=== PATIENT | male | born 1955 | race Caucasian/White ===

== ENCOUNTER 2017-05-11 17:19 | Outpatient (CLI) | payer SELFPAY | END 2017-05-11 17:20 | disposition critical access hospital (66) | LOC: EMS 17:19 | PROVIDERS: ATTEND Surgery | DX: M79.631 Pain in right forearm (principal); W20.8XXA Other cause of strike by thrown, projected or falling object, initial encounter | CPT/HCPCS: A0425; A0429 ==

== ENCOUNTER 2017-05-11 17:39 | Emergency (ER) | payer SELFPAY ==
--- NOTE | 2017-05-11 17:49 | ED Physician Documentation ---
PD HPI UPPER EXT INJURY - Stated complaint Stated Complaint: R FOREARM PX - Chief complaint Chief Complaint: Laceration - History obtained from History obtained from: Patient, EMS - History of Present Illness Location: Right, Forearm Type of injury: Blunt / blow (he was struck in forearm by piece of metal he was pulling on that slipped. It hurt a lot and he is concerned he broke his arm. he felt lightheaded soon after the injury as he walked into the house. Did not get struck in head/chest/abd. No chest pain. Did feel nauseated.) Where injury occurred: Home Timing - onset: Today Worsened by: Moving (hurts with elbow flexion but more with supination/ pronation of forearm, pain in dorsal proximal forearm, not in antecubiltal area. ), Palpating Associated symptoms: Swelling. No: Weakness, Numbness Contributing factors: No: Work related Similar symptoms before: Has not had sx before Recently seen: Not recently seen Review of Systems Constitutional: denies: Fever, Chills Nose: denies: Rhinorrhea / runny nose, Congestion Throat: denies: Sore throat Cardiac: denies: Chest pain / pressure, Palpitations Respiratory: denies: Dyspnea, Cough GI: denies: Abdominal Pain, Nausea, Vomiting, Diarrhea Neurologic: reports: Near syncope. denies: Syncope, Altered mental status, Headache, Head injury PD PAST MEDICAL HISTORY - Past Medical History Cardiovascular: [place] Respiratory: None Neuro: None Endocrine/Autoimmune: None - Present Medications Home Medications: Ambulatory Orders Medication Instructions Recorded Confirmed Throat Medication- 05/11/17 Tramadol HCl 50 mg PO Q6H PRN #20 tablet 05/11/17 - Allergies Allergies/Adverse Reactions: Allergies Allergy/AdvReac Type Severity Reaction Status Date / Time Penicillins Allergy Unknown Verified 05/11/17 17:45 PD ED PE NORMAL - Vitals Vital signs reviewed: Yes - General General: Alert and oriented X 3, No acute distress, Well developed/nourished - HEENT HEENT: Atraumatic, Pharynx benign - Cardiac Cardiac: RRR, No murmur - Respiratory Respiratory: Clear bilaterally - Abdomen Abdomen: Soft, Non tender - Derm Derm: Normal color, Warm and dry - Extremities Extremities: Other (right forearm with tenderness and swelling dorsal proximal forearm with abrasion there. Normal sensation, pulses, color and cap refill in hand'fingers. Not tender in antecubital area. ) - Neuro Neuro: Alert and oriented X 3, No motor deficit, No sensory deficit, Normal speech Eye Opening: Spontaneous Motor: Obeys Commands Verbal: Oriented GCS Score: 15 - Psych Psych: Normal mood, Normal affect Results - Vitals Vitals: Oxygen O2 Source Room air - Labs Labs: Laboratory Tests 05/11/17 18:04 POC Whole Bld Glucose 104 H - Rads (name of study) forearm xray Radiology: Prelim report reviewed (no fracture but concern for bone hypertrophy proximally; CT recommended if concern for bone tumor. ), EMP read contemporaneously (no fractures, but unusual bone hypertrophy proximally with periosteal lifting? so got CT to ensure not tumor.) CT right proximal forearm Radiology: Prelim report reviewed (bone hypertrophy c/w calcified tendonitis; no concern for malignancy. ) PD MEDICAL DECISION MAKING - ED course Complexity details: considered differential (he is feeling good now and near syncope was in response to pain stimulus of arm and no chest nor head pain. Presume vasovagal. ), d/w patient Departure - Departure Disposition: 01 Home, Self Care Clinical Impression: Forearm contusion Qualifiers: Encounter type: initial encounter Laterality: right Qualified Code(s): S50.11XA - Contusion of right forearm, initial encounter Episode of syncope Qualifiers: Syncope type: vasovagal syncope Qualified Code(s): R55 - Syncope and collapse Condition: Stable Record reviewed to determine appropriate education?: Yes Instructions: ED Contusion Upper Ext Follow-Up: Jalen Baig MD [Primary Care Provider] - Prescriptions: Tramadol HCl 50 mg PO Q6H PRN #20 tablet PRN Reason: Pain Comments: Your x-ray did not show any fractures. That area of bone growth that we discussed on CT scan was just reaction to likely tendinitis. No signs of bad bone lesions. For the contusion of the arm, ice and elevated often tonight. Use some naproxen or ibuprofen if needed for pains and add tramadol if needed. This should improve over the next few days. Drink lots of fluids. Discharge Date/Time: 05/11/17 20:49
[2017-05-11] MEDS ORDERED: IBUPROFEN 600 MG TABLET PO STA (18:04)
[2017-05-11] MEDS ORDERED: ACETAMINOPHEN 325 MG TABLET PO STA (18:04)
--- NOTE | 2017-05-11 18:29 | XRAY Preliminary Report ---
Exam: XR FOREARM RT IMPRESSION: 1. No acute bony abnormality. 2. Nonspecific calcification proximal interosseous region off the radius. Discrete primary bone lesio n not excluded. This is of uncertain clinical significance. [facility] SITE ID: [id number]
--- NOTE | 2017-05-11 18:33 | XRAY Report ---
EXAM: RIGHT FOREARM RADIOGRAPHY EXAM DATE: 05/11/2017 06:17 PM. CLINICAL HISTORY: Lawnmower blade hit mid right forearm. Pain. COMPARISON: None. TECHNIQUE: 2 views. FINDINGS: Bones: Trabecular and cortical patterns are intact. 2.5 x 1.5 cm nonspecific well-circumscribed mixed density dystrophic calcification or primary bone le trevor off the medial aspect proximal radial cortex. Moderate size osteophyte off the olecranon. Joints: Normal. No effusions or subluxations in the visualized wrist or elbow joints. Soft Tissues: Diffuse edema. No radiopaque foreign body. IMPRESSION: 1. No acute bony abnormality. 2. Nonspecific calcification proximal interosseous region off the radius. Discrete primary bone lesio n not excluded. This is of uncertain clinical significance. [facility] Referring Provider Line: [phone] SITE ID: [id number]
--- NOTE | 2017-05-11 20:29 | CT Preliminary Report ---
Exam: CT UPPER EXTREMITY RIGHT W/O IMPRESSION: 1. Moderate cortical thickening and cystic changes at the ulnar aspect proximal radius. This is at th e expected level of the biceps tendon insertion and may be reactive to tendinopathy or enthesopathic changes. Osseous lesion not completely excluded although thought less likely. MRI forearm with IV con trast could be performed for further characterization. 2. Mild degenerative changes. 3. Mild subcutaneous edema posteriorly. [facility] SITE ID: [id number]
--- NOTE | 2017-05-11 20:39 | CT Report ---
EXAM: RIGHT UPPER EXTREMITY CT WITHOUT CONTRAST EXAM DATE: 05/11/2017 08:02 PM. CLINICAL HISTORY: Bone lesion proximal radius on plain xray. COMPARISON: Radiographs 05/11/2017. TECHNIQUE: Thin-section axial images were acquired of the elbow and proximal forearm without contrast . Post-processing: Coronal and sagittal reformats. Other: None. In accordance with CT protocol optimization, one or more of the following dose reduction techniques w ere utilized for this exam: automated exposure control, adjustment of mA and/or KV based on patient s ize, or use of iterative reconstructive technique. FINDINGS: Bones: Moderate cortical thickening and cystic changes at the ulnar aspect of the proximal radial gregg physis. This is at the expected level of the distal biceps tendon insertion. No fracture. Joints: Alignment at the elbow anatomic. Mild degenerative changes at the radiocapitellar and ulnar t rochlear joints. No joint effusion. Musculature: No gross fatty atrophy. Evaluation for muscle edema limited on CT. Evaluation of the ten dons limited on CT. Other: Mild subcutaneous edema over the posterior aspect of the elbow. IMPRESSION: 1. Moderate cortical thickening and cystic changes at the ulnar aspect proximal radius. This is at th e expected level of the biceps tendon insertion and may be reactive to tendinopathy or enthesopathic changes. Osseous lesion not completely excluded although thought less likely. MRI forearm with IV con trast could be performed for further characterization. 2. Mild degenerative changes. 3. Mild subcutaneous edema posteriorly. [facility] Referring Provider Line: [phone] SITE ID: [id number]
[2017-05-11 20:48] VITALS: BP 121/82
== END 2017-05-11 20:49 | disposition home or self-care (01) ==
LOC: ED 17:39
DX: S50.11XA Contusion of right forearm, initial encounter (principal); S50.811A Abrasion of right forearm, initial encounter; R55 Syncope and collapse; W22.8XXA Striking against or struck by other objects, initial encounter; Y93.89 Activity, other specified; Y92.009 Unspecified place in unspecified non-institutional (private) residence as the place of occurrence of the external cause
CPT/HCPCS: 73090; 73200; 99284; A9270